=== PATIENT | female | born 1950 | race Caucasian/White ===

== ENCOUNTER 2019-04-27 16:44 | Observation (INO) | payer MEDICARE, OTHER ==
[~2019-04-27] VITALS: Ht 165.1 cm; Wt 101.6 kg
[2019-04-27] MEDS ORDERED: CALCIUM CARBON650 M2 PO (17:00)
[2019-04-27] MEDS ORDERED: MICRO-K EXTENCA8 MEQ (17:01)
[2019-04-27] MEDS ORDERED: SYNTHROID 0.10.15 MG PO (17:01)
[2019-04-27] MEDS ORDERED: CEFZIL500 MG PO (17:02)
[2019-04-27] MEDS ORDERED: TRIAMCINOLONE A15 G3 TP (17:03)
[2019-04-27 17:15] LABS: BASO # 0.1 (0.0-0.2); BASO % 0.7 % (0.0-2.0); EOS # 0.2 (0.0-0.7); EOS % 2.8 % (0-4.0); GRAN # 5.2 (1.4-6.5); GRAN % 60.9 % (42.2-75.2); HEMATOCRIT 43.1 % (37.0-47.0); HEMOGLOBIN 14.7 g/dl (12.5-16.0); LYMPH # 2.2 (1.2-3.4); MEAN CELL VOLUME 86 fl (80.0-100.0); MEAN CORPUSCULAR HEMOGLOBIN 30 pg (27.0-31.0); MEAN CORPUSCULAR HGB CONC 34 g/dl (33.0-37.0); MEAN PLATELET VOLUME 10.6 fl (7.4-10.4); MONO # 0.8 (0.1-0.6); MONO % 9.1 % (1.7-9.3); PLATELET COUNT 223 K/mm3 (130-400); RED BLOOD COUNT 4.99 M/mm3 (4.10-5.30)
[2019-04-27 17:25] LABS: ALANINE AMINOTRANSFERASE 28 U/L (9-52); ALBUMIN 4.2 gm/dL (3.5-5.0); ALKALINE PHOSPHATASE 73 U/L (50-136); ANION GAP 10 mmol/L (7-16); AST,SGOT 40 U/L (15-37); BILIRUBIN,TOTAL 1.1 mg/dL (0.0-1.0); BLOOD UREA NITROGEN 17 mg/dL (7-17); CALCIUM 9.6 mg/dL (8.4-10.2); CARBON DIOXIDE 26 mmol/L (22-30); CHLORIDE 104 mmol/L (98-107); CREATININE, serum 0.55 (0.52-1.25); GLUCOSE 107 mg/dL (74-106); POTASSIUM 3.6 mmol/L (3.4-5.0); SODIUM 140 mmol/L (137-145); TOTAL PROTEIN 7.6 gm/dL (6.4-8.2)
[2019-04-27 17:35] LABS: INR 1.1 (0.8-3.0); PROTHROMBIN TIME 12.3 SECONDS (9.7-12.8)
[2019-04-27 17:41] LABS: TROPONIN-I < 0.012 ng/mL (0.000-0.035)
--- NOTE | 2019-04-27 19:35 | NUR ---
Pt to Rm 317 per cart from ER with spouse and daughter at side. Sats on RA at 94%. C/O some CP rated 4/10 across upper chest. Tele on but readjusted batteries. SR with HR 60's - 70's. INT intact to L FA. Pt ambulates from cart to BR. Voids and then to bed. Call light within reach.
[2019-04-27 20:03] VITALS: BP 154/78; PULSE 62; TEMP 97.7
[2019-04-28] VITALS (9 sets, daily range): BP systolic 113–171; BP diastolic 60–85; PULSE 61–101; TEMP 97.9–98.8
[2019-04-28] MEDS ORDERED: FLONASE NASAL S16 GM IH (00:31)
[2019-04-28] MEDS ORDERED: CALCIUM 600MG+D1 TAB PO (00:57)
--- NOTE | 2019-04-28 03:01 | NUR ---
Dr Yang notified of pt arrival to 317. Order for morphine 2mg IV obtained and given pt 1st dose.
[2019-04-28 06:08] LABS: HEMATOCRIT 38.3 % (37.0-47.0); MEAN CELL VOLUME 87 fl (80.0-100.0); MEAN CORPUSCULAR HEMOGLOBIN 29 pg (27.0-31.0); MEAN CORPUSCULAR HGB CONC 33 g/dl (33.0-37.0); MEAN PLATELET VOLUME 10.9 fl (7.4-10.4); PLATELET COUNT 185 K/mm3 (130-400); RED BLOOD COUNT 4.38 M/mm3 (4.10-5.30); REDCELL DISTRIBUTION WIDTH-CV 13.1 % (11.5-14.5)
[2019-04-28 06:13] LABS: HEMOGLOBIN 12.7 g/dl (12.5-16.0)
[2019-04-28 06:26] LABS: CALCIUM 8.9 mg/dL (8.4-10.2); CHOLESTEROL RISK RATIO 3.5; CREATININE, serum 0.67 (0.52-1.25); POTASSIUM 3.9 mmol/L (3.4-5.0)
[2019-04-28 06:51] LABS: TSH w REFLEX 0.015 uIU/mL (0.465-4.680)
--- NOTE | 2019-04-28 08:37 | NUR ---
After IV meds given at HS and family left for the night, pt requested and given warm blanket. Slept all night. Reports no pain at 0630. Remains on tele. Call light within reach. Informed pt to call before getting out of bed.
--- NOTE | 2019-04-28 09:37 | NUR ---
Assessment completed, alert/oriented, vital signs stable/ blood pressures improved, she denies any further chest pain or discomfort, she has one epsiosde of nausea/ vomitting last night and stated after that she felt completeltly better, heart RRR/distal pulses are palapble, SR on tele, lungs CTA/ no resp.difficulty noted, she is really wanting to discharge and get back home to [facility] today, denies other needs at [facility]
--- NOTE | 2019-04-28 10:12 | NUR ---
PAULINE met with the patient, patient's (Mau), and son (Robin) to discuss discharge plan. The patient lives in [place] with her . Her and her were in [facility]. She reports independence with ADLs and does not have any DME. The patient's primary care provider is Vira Pedro APRN and she receives her medications at a pharmacy in [place] or the [facility] in [place]. She reports no difficulties obtaining her meds. The patient plans to return back home with her upon discharge. No additional needs at this time.
--- NOTE | 2019-04-28 11:41 | NUR ---
Initial visit; Patient thanked Cook Helper for looking in on her and offering God's blessings. Patient states that her [employer] has been contacted. Tessa seems to be doing well.
[2019-04-28] MEDS ORDERED: APRESOLINE 10MG10 MG PO (14:27)
--- NOTE | 2019-04-28 16:14 | NUR ---
Patient discharging, orders /instructions discussed, instructed to follow up with PCP as we have scheduled, instructed to take Apresoline as ordered and check B/P daily as instructed, IV and tele removed, she is leaving with family, MITER OPERATOR escorted them out the door
== END 2019-04-28 16:19 | disposition home or self-care (01) ==
LOC: COL.ER 16:44 → MEDICAL 18:12
PROVIDERS: Emergency Medicine; ADMIT Student in an Organized Health Care Education/Training Program
DX: R07.89 Other chest pain (principal); I16.0 Hypertensive urgency; E05.90 Thyrotoxicosis, unspecified without thyrotoxic crisis or storm; E87.6 Hypokalemia; Z79.899 Other long term (current) drug therapy; Z96.642 Presence of left artificial hip joint; Z90.49 Acquired absence of other specified parts of digestive tract; Z90.710 Acquired absence of both cervix and uterus; Z88.5 Allergy status to narcotic agent; Z88.6 Allergy status to analgesic agent
CPT/HCPCS: A9500; C9113; G0378; J1200; J1650; J2270; J2405; J2785; J7030

== ENCOUNTER → 2022-01-24 | Outpatient (CLI) | payer MEDICARE, OTHER ==
[~2022-01-24] MED LIST: APRESOLINE 10MG10 MG PO; CALCIUM 600MG+D1 TAB PO; CALCIUM CARBON650 M2 PO; CEFZIL500 MG PO; FLONASE NASAL S16 GM IH; MICRO-K EXTENCA8 MEQ; SYNTHROID 0.10.15 MG PO; TRIAMCINOLONE A15 G3 TP
== END ==
LOC: COL.RAD 09:32
DX: M25.551 Pain in right hip (principal)
CPT/HCPCS: J3301; Q9967